=== PATIENT | male | born 1965 | race Two or more races ===

== ENCOUNTER 2016-12-16 03:52 | Emergency (ER) | payer OTHER, BC ==
[~2016-12-16] VITALS: Ht 167.6 cm; Wt 64.5 kg
[2016-12-16] MEDS ORDERED: NORCO 5/3251 TABLET PO (05:16)
[2016-12-16 06:00] VITALS: BP 115/78
== END 2016-12-16 06:11 | disposition home or self-care (01) ==
LOC: EME 03:52
DX: S02.82XA Fracture of other specified skull and facial bones, left side, initial encounter for closed fracture (principal); S02.2XXA Fracture of nasal bones, initial encounter for closed fracture; S00.83XA Contusion of other part of head, initial encounter; H11.32 Conjunctival hemorrhage, left eye; Y99.0 Civilian activity done for income or pay; Y04.0XXA Assault by unarmed brawl or fight, initial encounter; Y92.59 Other trade areas as the place of occurrence of the external cause
CPT/HCPCS: 70450; 70486; 99281; 99283